=== PATIENT | female | born 2000 | race Hispanic/Latino ===

== ENCOUNTER 2020-06-01 08:36 | Emergency (ER) | payer MEDICAID | END 2020-06-01 09:39 | disposition home or self-care (01) | LOC: EDH 08:36 | DX: F19.10 Other psychoactive substance abuse, uncomplicated (principal); F41.9 Anxiety disorder, unspecified | CPT/HCPCS: 99281 ==

== ENCOUNTER 2021-02-24 12:43 | Emergency (ER) | payer MEDICARE ==
[2021-02-24] MEDS ORDERED: ACETAMINOPHEN EXTRA STRENGTH 500 MG TABLET ONE (12:51)
[2021-02-24] MEDS ORDERED: LIDOCAINE HCL-MPF 1% 2ML VIAL ONE (12:51)
[2021-02-24] MEDS ORDERED: CEFTRIAXONE SODIUM 1 GM ONE (12:51)
== END 2021-02-24 13:08 | disposition home or self-care (01) ==
LOC: EDH 12:43
DX: H66.91 Otitis media, unspecified, right ear (principal)
CPT/HCPCS: 96372; 99283; J0696; J3490

== ENCOUNTER 2022-02-13 09:25 | Emergency (ER) | payer MEDICARE ==
[~2022-02-13] VITALS: Ht 160 cm; Wt 75.7 kg
[2022-02-13] MEDS ORDERED: LACTULOSE 20 GM/30 ML UDCUP PO ONE (11:30)
[2022-02-13] MEDS ORDERED: LACTULOSE 20 GM/30 ML UDCUP ONE (11:32)
[2022-02-13] MEDS ORDERED: POLY17PO4 PO (11:33)
[2022-02-13 11:47] VITALS: BP 116/74
== END 2022-02-13 11:48 | disposition home or self-care (01) ==
LOC: EDH 09:25
DX: O26.891 Other specified pregnancy related conditions, first trimester (principal); K59.00 Constipation, unspecified; Z3A.01 Less than 8 weeks gestation of pregnancy
CPT/HCPCS: 81025

== ENCOUNTER 2022-07-20 21:33 | Emergency (ER) | payer MEDICARE, OTHER ==
[~2022-07-20] VITALS: Ht 165.1 cm; Wt 72.6 kg
[~2022-07-20 21:33] MED LIST: POLY17PO4 PO
[2022-07-20] MEDS ORDERED: IBUP-1493 PO (22:55)
[2022-07-20] MEDS ORDERED: CYCL-309 PO (22:55)
[2022-07-21 00:43] VITALS: BP 101/66
== END 2022-07-21 00:44 | disposition home or self-care (01) ==
LOC: EDH 21:33
DX: M54.50 Low back pain, unspecified (principal); V49.49XA Driver injured in collision with other motor vehicles in traffic accident, initial encounter; Y93.89 Activity, other specified; Y92.89 Other specified places as the place of occurrence of the external cause; Y99.8 Other external cause status
CPT/HCPCS: 72040; 72070; 72100; 81025